=== PATIENT | male | born 1930 | race Caucasian/White ===

== ENCOUNTER 2017-04-08 13:28 | Observation (INO) | payer MEDICARE, OTHER ==
[~2017-04-08] VITALS: Ht 182.9 cm; Wt 83.5 kg
[~2017-04-08 13:28] MED LIST: ACETAMINOPHEN325 M2 PO; AMOXICILLIN500 M1 PO; AMOXICILLIN500 MG PO; ANTACID PO; ANTI PO; ARTIFICIAL TEA3.5 G3 OP; ATORVASTATIN CA40 MG PO; BAYER CHEWABLE81 M2 PO; CYANOCOBAL1000 MCG/M SC; DIGOX125 MCG PO; FLOMAX0.4 M1 PO; FLOMAX0.4 MG PO; FLONASE16 GM NS; FOLTX TABLET1 EAC1 PO; GAS PO; GAS RELIEF80 M1 PO; LEVAQUIN500 M1 PO; LEVAQUIN750 MG PO; LIPITOR40 M1 PO; LORTAB 7.5-3251 EAC1 PO; MILK OF MA400 MG/5 M PO; MIRALAX119 G1 PO; MUCINEX600 M1 PO; MUCINEX600 MG PO; OMNICEF300 MG PO; PLAVIX75 M1 PO; PROPAFENONE HC150 MG PO; PROTONIX40 M2 PO; VISINE TEARS DR15 ML RIGHT EYE; VISINE30 ML BOTH EYES; VITAMIN B-121000 MC1 PO; VITAMIN D35000 UNI2 PO; VITAMIN D5000 UNIT PO; [UNRECOGNIZED DRUG - OTHER] PO
[2017-04-08 14:03] LABS: EOS % 0.5 % (0-7); HCT-HEMATOCRIT 29.2 % (36.0-53.5); HGB-HEMOGLOBIN 9.4 gm/dl (13.5-17.0); IMMATURE GRANULOCYTES ABSOLUTE 0.01 tho/cmm (0-0.03); IMMATURE GRANULOCYTES PERCENT 0.5 % (0-0.3); LYMPH % 21.4 % (20-45); LYMPH ABSOLUTE COUNT 0.4 tho/cmm (0.8-4.5); MCH (MEAN CORPUSCULAR HGB) 26.6 pg (28.0-32.0); MCHC MEAN CORPUSCULAR HGB CONC 32.2 % (32.0-36.0); MCV (MEAN CELL VOLUME) 82.5 fl (82.0-96.0); MEAN PLATELET VOLUME 9.3 cmc (9.4-12.4); MONO % 7.8 % (0-12); MONOCYTE ABSOLUTE COUNT 0.2 tho/cmm (0.0-1.2); NEUTROPHIL ABSOLUTE COUNT 1.3 tho/cmm (1.6-8.0); NEUTROPHIL-AUTOMATED 1.3 tho/cmm (1.6-8.0); NEUTROPHILS % 69.8 % (40-80); PLATELET COUNT 144 tho/cmm (150-450); RED BLOOD COUNT 3.54 mil/cmm (4.40-5.70); RED CELL DISTRIBUTION WIDTH 16.8 % (12.4-16.4)
[2017-04-08 14:08] LABS: WHITE BLOOD COUNT 1.9 tho/cmm (4.0-10.0)
[2017-04-08 14:19] LABS: ANION GAP 9 mmol/L (0-20); BLOOD UREA NITROGEN 20 mg/dl (6-24); CALCIUM 7.7 mg/dl (8.5-10.5); CARBON DIOXIDE-VENOUS 22 mmol/L (22-32); CHLORIDE 109 mmol/l (96-110); CREATININE 0.69 mg/dl (0.60-1.30); GLUCOSE 76 mg/dL (70-110); POTASSIUM 3.4 mmol/L (3.7-5.1); SODIUM 137 mmol/L (135-145); eGFR VALUE FOR BLACK >90 mL/Min
[2017-04-08] MEDS ORDERED: DIPHENHYDR50 MG/1 M2 IV (14:51)
[2017-04-08] MEDS ORDERED: RITUXAN100 MG/10 IV (14:52)
[2017-04-08] MEDS ORDERED: TYLENOL325 M2 PO (14:54)
[2017-04-08] MEDS ORDERED: ANTACID ANTI-G355 ML PO (14:59)
[2017-04-08] MEDS ORDERED: CETAPHIL DAILY TOP (15:00)
[2017-04-08] MEDS ORDERED: ARTIFICIAL TEAR1510 OP (15:03)
[2017-04-08] MEDS ORDERED: BISCOLAX10 MG PR (15:04)
[2017-04-08] MEDS ORDERED: COMBIVENT RESPIM4 G1 INH (15:05)
[2017-04-08] MEDS ORDERED: COUGH SYRU100 MG/51 PO (15:06)
[2017-04-08] MEDS ORDERED: FOLIC ACID0.4 M1 PO (15:10)
[2017-04-08] MEDS ORDERED: FEOSOL325 M1 PO (15:10)
[2017-04-08] MEDS ORDERED: VIBRAMYCIN100 M1 PO (15:11)
[2017-04-08] MEDS ORDERED: CULTURELLE1 EAC1 PO (15:11)
[2017-04-08] MEDS ORDERED: VSL#3 PACKET1 EACH PO (15:12)
[2017-04-08] MEDS ORDERED: MILK OF MAGNESIA PO (15:15)
[2017-04-08] MEDS ORDERED: MYRBETRIQ25 M1 PO (15:16)
[2017-04-08] MEDS ORDERED: ZOFRAN8 M1 PO (15:16)
[2017-04-08] MEDS ORDERED: ROBAFEN DM COU118 M1 PO (15:20)
[2017-04-08] MEDS ORDERED: SIMETHICONE80 M3 PO (15:21)
[2017-04-08 15:34] LABS: ALB/GLOB RATIO 0.5 (0.8-2.0); ALBUMIN 2.6 g/dl (3.5-5.0); BILIRUBIN,DIRECT 0.2 mg/dl (0.0-0.3); BILIRUBIN,INDIRECT 0.3 mg/dL (0.0-1.0); BILIRUBIN,TOTAL 0.5 mg/dl (0.0-1.5)
[2017-04-08 21:53] LABS: URINE BILIRUBIN NEGATIVE (NEG); URINE BLOOD NEGATIVE (NEG); URINE GLUCOSE (UA) NEGATIVE (NEG); URINE KETONE NEGATIVE (NEG); URINE LEUKOCYTE ESTERASE POSITIVE (NEG); URINE NITRITE NEGATIVE (NEG); URINE PROTEIN SMALL (NEG); URINE SPECIFIC GRAVITY 1.015 (1.003-1.030)
[2017-04-08 21:55] LABS: URINE APPEARANCE CLEAR; URINE COLOR YELLOW
[2017-04-08 22:10] LABS: URINE RBC 0 /[HPF] (0-5)
[2017-04-09 05:54] LABS: HCT-HEMATOCRIT 27.6 % (36.0-53.5); HGB-HEMOGLOBIN 9.1 gm/dl (13.5-17.0); MCV (MEAN CELL VOLUME) 81.9 fl (82.0-96.0); MEAN PLATELET VOLUME 9.9 cmc (9.4-12.4); NEUTROPHIL-AUTOMATED 9.2 tho/cmm (1.6-8.0); PLATELET COUNT 156 tho/cmm (150-450); RED BLOOD COUNT 3.37 mil/cmm (4.40-5.70); RED CELL DISTRIBUTION WIDTH 17.2 % (12.4-16.4)
[2017-04-09 05:58] LABS: WHITE BLOOD COUNT 10.4 tho/cmm (4.0-10.0)
[2017-04-09 06:08] LABS: ANION GAP 10 mmol/L (0-20); BLOOD UREA NITROGEN 20 mg/dl (6-24); CALCIUM 7.6 mg/dl (8.5-10.5); CARBON DIOXIDE-VENOUS 23 mmol/L (22-32); CHLORIDE 111 mmol/l (96-110); CREATININE 0.83 mg/dl (0.60-1.30); GLUCOSE 96 mg/dL (70-110); MAGNESIUM 1.8 mg/dl (1.8-2.6); SODIUM 140 mmol/L (135-145); eGFR VALUE FOR BLACK >90 mL/Min
[2017-04-09 06:12] LABS: POTASSIUM 4.4 mmol/L (3.7-5.1)
[2017-04-09 07:10] LABS: BAND % 35 % (0-20); BAND ABSOLUTE COUNT 3.6 tho/cmm (0-2.0)
[2017-04-09 07:11] LABS: WBC MORPHOLOGY VACUOLES
== END 2017-04-09 14:35 ==
LOC: EDMED → EDBD 13:28 → EDMED 13:28 → EMR2 16:10 → 5WF 16:10
PROVIDERS: Emergency Medicine; Surgery; ADMIT Internal Medicine Hematology & Oncology
PROC: 4A0D7LZ Measurement of Urinary Volume, Via Natural or Artificial Opening (ICD-10-PCS; principal; 2017-04-08)
DX: R07.9 Chest pain, unspecified (principal); T45.1X5A Adverse effect of antineoplastic and immunosuppressive drugs, initial encounter; C83.10 Mantle cell lymphoma, unspecified site; K21.9 Gastro-esophageal reflux disease without esophagitis; I10 Essential (primary) hypertension; H35.30 Unspecified macular degeneration; E78.5 Hyperlipidemia, unspecified; G47.30 Sleep apnea, unspecified; Z79.02 Long term (current) use of antithrombotics/antiplatelets; Z79.2 Long term (current) use of antibiotics; Z79.82 Long term (current) use of aspirin; Z79.899 Other long term (current) drug therapy; Z87.891 Personal history of nicotine dependence; Z80.0 Family history of malignant neoplasm of digestive organs
CPT/HCPCS: J1650; J7030